=== PATIENT | male | born 1985 | race Caucasian/White ===

== ENCOUNTER 2017-11-06 22:33 | Emergency (ER) | payer SELFPAY ==
[~2017-11-06] VITALS: Ht 195.6 cm; Wt 120.2 kg
[2017-11-06] MEDS ORDERED: ASPIRIN 81 MG CHEW (CHILDREN'S ASA) PO ONE (23:15)
[2017-11-06 23:20] LABS: BASOPHILS % (AUTO) 0 % (0-10); EOSINOPHILS # (AUTO) 0.1 10^3/uL (0.0-0.3); EOSINOPHILS % (AUTO) 1 % (0-10); HEMATOCRIT 48 % (40-54); HEMOGLOBIN 17.3 G/DL (13.3-17.7); LYMPHOCYTES # (AUTO) 2.3 X 10^3 (1.0-4.0); LYMPHOCYTES % (AUTO) 26 % (12-44); MEAN CORPUSCULAR HEMOGLOBIN 32 PG (25-34); MEAN CORPUSCULAR HGB CONC 36 G/DL (32-36); MEAN CORPUSCULAR VOLUME 89 FL (80-99); MEAN PLATELET VOLUME 10.1 FL (7.4-10.4); MONOCYTES # (AUTO) 0.9 X 10^3 (0.0-1.0); MONOCYTES % (AUTO) 10 % (0-12); NEUTROPHILS # (AUTO) 5.6 X 10^3 (1.8-7.8); NEUTROPHILS % (AUTO) 63 % (42-75); PLATELET COUNT 263 10^3/uL (130-400); RED BLOOD COUNT 5.43 10^6/uL (4.35-5.85); RED CELL DISTRIBUTION WIDTH 12.1 % (10.0-14.5); WHITE BLOOD COUNT 8.9 10^3/uL (4.3-11.0)
[2017-11-06] MEDS: NITROGLYCERIN 0.4 MG SL TABS BTL 25'S SL PRN ×2 (23:26→23:27)
[2017-11-06 23:30] LABS: INR 1.1 (0.8-1.4); PROTHROMBIN TIME PATIENT 13.9 SEC (12.2-14.7)
[2017-11-06 23:34] LABS: ALANINE AMINOTRANSFERASE 20 U/L (0-55); ALBUMIN 4.6 GM/DL (3.2-4.5); ALKALINE PHOSPHATASE 70 U/L (40-136); BILIRUBIN,TOTAL 1.3 MG/DL (0.1-1.0); BUN/CREATININE RATIO 18; CALCIUM 9.6 MG/DL (8.5-10.1); CARBON DIOXIDE 19 MMOL/L (21-32); CHLORIDE 109 MMOL/L (98-107); CREATININE SERUM 0.94 MG/DL (0.60-1.30); GFR ESTIMATED > 60; GLUCOSE 100 MG/DL (70-105); MAGNESIUM 2.3 MG/DL (1.8-2.4); POTASSIUM 3.7 MMOL/L (3.6-5.0); SODIUM 140 MMOL/L (135-145); TOTAL PROTEIN 7.7 GM/DL (6.4-8.2)
[2017-11-06 23:41] LABS: MYOGLOBIN SERUM 42.4 NG/ML (10.0-92.0)
[2017-11-07] MEDS ORDERED: PROP10TA8 PO (00:29)
[2017-11-07 01:20] LABS: AMPHETAMINE SCREEN, URINE NEGATIVE (NEGATIVE); BARBITURATE SCREEN URINE NEGATIVE (NEGATIVE); BENZODIAZEPINES SCREEN URINE NEGATIVE (NEGATIVE); CANNABINOID SCREEN, URINE POSITIVE (NEGATIVE); COCAINE SCREEN URINE NEGATIVE (NEGATIVE); METHADONE STAT NEGATIVE (NEGATIVE); METHAMPHETAMINE SCREEN URINE S NEGATIVE (NEGATIVE); OPIATE SCREEN URINE NEGATIVE (NEGATIVE); OXYCODONE STAT NEGATIVE (NEGATIVE); PROPOXYPHENE STAT NEGATIVE (NEGATIVE); TRICYCLIC ANTIDEPRESSANTS SCRE NEGATIVE (NEGATIVE)
--- NOTE | 2017-11-07 02:10 | ED Chest Pain ---
General Chief Complaint: Chest Pain Stated Complaint: CP Nursing Triage Note: PT PRESENTS TO ER WITH COMPLAINT OF CHEST PAIN THAT STARTED AN HOUR AGO. STATE HE THINKS IT COULD BE AN ANXIETY ATTACK. WAS SEEN A COUPLE WEEKS AGO WITH PROBABLE ANXIEY ATTACK AND GIVEN PROPRANLOL TO TAKE AT HOME. Nursing Sepsis Screen: No Definite Risk Source: patient Exam Limitations: no limitations History of Present Illness Date Seen by Provider: Nov 06, 2017 Time Seen by Provider: 22:50 Initial Comments This 31-year-old young man presents to the emergency room with chest pain for about one hour. The pain radiates to his left arm which also feels swollen. He describes the pain as a tightening. He took propranolol at the onset of pain which had been prescribed from [place] of state. He lives in [place] where he had a similar episode a few weeks ago. His workup was reportedly unremarkable at that time and he was prescribed propranolol for anxiety. He was advised to return to care if symptoms worsened again. He is traveling through the area on a fishing trip with his significant other. He denies any associated symptoms of shortness of air, nausea, lightheadedness, etc. He does feel agitated and thinks these symptoms may be related to anxiety. Symptoms do not worsen with exertion, deep breathing, or movement. He denies any injury. Allergies and Home Medications Allergies Coded Allergies: No Known Drug Allergies (Unverified , 11/06/17) Home Medications Propranolol HCl 10 Mg Tablet, Unknown Dose PO BID, (Reported) Patient Home Medication List Home Medication List Reviewed: Yes Review of Systems Constitutional: no symptoms reported EENTM: No Symptoms Reported Respiratory: No Symptoms Reported Cardiovascular: See HPI Gastrointestinal: No Symptoms Reported Genitourinary: No Symptoms Reported Musculoskeletal: no symptoms reported Skin: no symptoms reported Psychiatric/Neurological: See HPI Endocrine: No Symptoms Reported Hematologic/Lymphatic: No Symptoms Reported Past [id number] Hx Past Med/Social Hx: Reviewed and Corrections made Patient Social History Alcohol Use: Past History Smoking Status: Current Everyday Smoker Type Used: Cigarettes Recent Foreign Travel: No Contact w/Someone Who Travel: No Recent Infectious Disease Expo: No Recent Hopitalizations: No Immunizations Up To Date Tetanus Booster (TDap): Unknown PED Vaccines UTD: Yes Seasonal Allergies Seasonal Allergies: No Past Medical History Surgeries: No Respiratory: No Cardiac: No Neurological: No Genitourinary: No Gastrointestinal: No Musculoskeletal: No Endocrine: No HEENT: No Cancer: No Psychosocial: Yes Anxiety Integumentary: No Blood Disorders: No Family Medical History Reviewed and Corrections made No Pertinent Family Hx (No history of cardiac disease or sudden cardiac ) Physical Exam Vital Signs Vital Signs - First Documented 11/06/17 22:51 Pulse 79 Resp 20 B/P (MAP) 160/106 (124) Pulse Ox 98 O2 Delivery Room Air Capillary Refill : Less Than 3 Seconds General Appearance: WD/WN, Anxious HEENT: PERRL/EOMI, Normal ENT Inspection, Pharynx Normal Neck: Normal Inspection Respiratory: Chest Non Tender, Lungs Clear, Normal Breath Sounds, No Accessory Muscle Use, No Respiratory Distress Cardiovascular: Regular Rate, Rhythm, No Edema, No Murmur, Normal Peripheral Pulses Gastrointestinal: Normal Bowel Sounds, Non Tender, Soft Extremity: Normal Capillary Refill, Normal Inspection, No Pedal Edema Neurologic/Psychiatric: Alert, Oriented x3, No Motor/Sensory Deficits, Normal Mood/Affect, cashier gambling II-XII Norm as Tested Skin: Normal Color, Warm/Dry Progress/Results/Core Measures Results/Orders Lab Results Laboratory Tests Test 11/06/17 00:00 11/06/17 01:02 11/06/17 23:00 11/07/17 01:30 Range/Units C-Reactive Protein High Sensitivity 0.09 0.00-0.50 MG/DL Serum Alcohol < 10 <10 MG/DL Urine Opiates Screen NEGATIVE NEGATIVE Urine Oxycodone Screen NEGATIVE NEGATIVE Urine Methadone Screen NEGATIVE NEGATIVE Urine Propoxyphene Screen NEGATIVE NEGATIVE Urine Barbiturates Screen NEGATIVE NEGATIVE Ur Tricyclic Antidepressants Screen NEGATIVE NEGATIVE Urine Phencyclidine Screen NEGATIVE NEGATIVE Urine Amphetamines Screen NEGATIVE NEGATIVE Urine Methamphetamines Screen NEGATIVE NEGATIVE Urine Benzodiazepines Screen NEGATIVE NEGATIVE Urine Cocaine Screen NEGATIVE NEGATIVE Urine Cannabinoids Screen POSITIVE H NEGATIVE White Blood Count 8.9 4.3-11.0 10^3/uL Red Blood Count 5.43 4.35-5.85 10^6/uL Hemoglobin 17.3 13.3-17.7 G/DL Hematocrit 48 40-54 % Mean Corpuscular Volume 89 80-99 FL Mean Corpuscular Hemoglobin 32 25-34 PG Mean Corpuscular Hemoglobin Concent 36 32-36 G/DL Red Cell Distribution Width 12.1 10.0-14.5 % Platelet Count 263 130-400 10^3/uL Mean Platelet Volume 10.1 7.4-10.4 FL Neutrophils (%) (Auto) 63 42-75 % Lymphocytes (%) (Auto) 26 12-44 % Monocytes (%) (Auto) 10 0-12 % Eosinophils (%) (Auto) 1 0-10 % Basophils (%) (Auto) 0 0-10 % Neutrophils # (Auto) 5.6 1.8-7.8 X 10^3 Lymphocytes # (Auto) 2.3 1.0-4.0 X 10^3 Monocytes # (Auto) 0.9 0.0-1.0 X 10^3 Eosinophils # (Auto) 0.1 0.0-0.3 10^3/uL Basophils # (Auto) 0.0 0.0-0.1 10^3/uL Prothrombin Time 13.9 12.2-14.7 SEC INR Comment 1.1 0.8-1.4 Activated Partial Thromboplast Time 28 24-35 SEC D-Dimer < 0.27 0.00-0.49 UG/ML Sodium Level 140 135-145 MMOL/L Potassium Level 3.7 3.6-5.0 MMOL/L Chloride Level 109 H 98-107 MMOL/L Carbon Dioxide Level 19 L 21-32 MMOL/L Anion Gap 12 5-14 MMOL/L Blood Urea Nitrogen 17 7-18 MG/DL Creatinine 0.94 0.60-1.30 MG/DL Estimat Glomerular Filtration Rate > 60 BUN/Creatinine Ratio 18 Glucose Level 100 70-105 MG/DL Calcium Level 9.6 8.5-10.1 MG/DL Magnesium Level 2.3 1.8-2.4 MG/DL Total Bilirubin 1.3 H 0.1-1.0 MG/DL Aspartate Amino Transf (AST/SGOT) 20 5-34 U/L Alanine Aminotransferase (ALT/SGPT) 20 0-55 U/L Alkaline Phosphatase 70 40-136 U/L Myoglobin 42.4 10.0-92.0 NG/ML Troponin I < 0.30 < 0.30 <0.30 NG/ML Total Protein 7.7 6.4-8.2 GM/DL Albumin 4.6 H 3.2-4.5 GM/DL My Orders Orders - PRISCILA OLIVARES MD Cbc With Automated Diff (11/06/17 23:08) Magnesium (11/06/17 23:08) Ekg Tracing (11/06/17 23:08) Cardiac Profile 1 (11/06/17 23:08) Comprehensive Metabolic Panel (11/06/17 23:08) Myoglobin Serum (11/06/17 23:08) Protime With Inr (11/06/17 23:08) Partial Thromboplastin Time (11/06/17 23:08) O2 (11/06/17 23:08) Monitor-Rhythm Ecg Trace Only (11/06/17 23:08) Saline Lock/Iv-Start (11/06/17 23:08) Fibrin Degradation Products (11/06/17 23:08) Aspirin Chewable Tablet (Baby Aspirin Ch (11/06/17 23:15) Nitroglycerin 0.4 Mg Btl 25's (Nitrostat (11/06/17 23:15) Chest Pa/Lat (2 View) (11/06/17 23:28) Alcohol (11/06/17 23:40) Drug Screen Stat (Urine) (11/06/17 23:40) Hs C Reactive Protein (11/07/17 00:06) Troponin I (11/07/17 01:21) Ekg Tracing (11/07/17 01:21) Medications Given in ED Vital Signs/I&O 11/06/17 11/07/17 22:51 02:17 Pulse 79 92 Resp 20 20 B/P (MAP) 160/106 (124) 145/80 Pulse Ox 98 100 O2 Delivery Room Air Room Air Blood Pressure Mean: 124 Progress Progress Note : Progress Note Cardiac workup was pursued which was unremarkable. There were no ischemic changes noted on EKG. Chest x-ray showed no acute abnormalities. Patient received aspirin but declined nitroglycerin. Pain resolved spontaneously and did not return. Patient was offered a four-hour cardiac rule out which he appreciated. A repeat troponin and EKG were performed about 4 hours from onset of pain. There were no significant changes. Patient was dismissed home and advised to follow-up with a primary care provider soon as possible. EKG #1: EKG Time: 22:54 Rate: 80 Rhythm: Normal Sinus Comment Normal sinus rhythm with no ST elevation or depression. Incomplete right bundle branch block. No axis deviation. EKG #2: EKG Time: 01:23 Rate: 63 Rhythm: Normal Sinus Comment Sinus rhythm with no ST elevation or depression. Incomplete right bundle branch block. No axis deviation. Diagnostic Imaging Diagonstic Imaging: Xray Plain Films/CT/US/NM/MRI: chest Comments Chest x-ray viewed by me. Report not yet available. No acute abnormalities appreciated. Departure Impression Primary Impression: Atypical chest pain Additional Impression: Anxiety Disposition: HOME, SELF-CARE Condition: Improved Departure-Patient Inst. Decision time for Depature: 02:09 Referrals: NO,LOCAL PHYSICIAN (PCP/Family) Primary Care Physician Patient Instructions: Chest Pain (DC) Add. Discharge Instructions: Based on your evaluation in the ER, your chest pain is likely not related to heart disease or blood clot in the lung. Anxiety may be a contributing factor. Please follow-up with your primary care provider as soon as possible. Return to care promptly if you are having worsening symptoms. Avoid use of any inhaled irritants such as tobacco smoke or marijuana. Work toward quitting smoking as soon as possible and seek help from your doctor if necessary. All discharge instructions reviewed with patient and/or family. Voiced understanding. PRISCILA OLIVARES MD Nov 07, 2017 02:10
[2017-11-07 02:17] VITALS: BP 145/80
--- NOTE | 2017-11-07 06:50 | Diagnostic Imaging Report ---
Patient History: Chest pain Technique: Two views of the chest Comparison: None FINDINGS: The lung volumes are normal. No focal consolidation is seen. No large pleural effusion or pneumothorax is seen. The posterior costophrenic angles are incompletely included on the lateral view. The cardiomediastinal silhouette is normal in size and contour. No acute osseous abnormality is seen. IMPRESSION: No acute pulmonary abnormality seen. Dictated by: Dictated on workstation # [id number]
== END 2017-11-07 02:17 | disposition home or self-care (01) ==
LOC: ER 22:35
DX: R07.89 Other chest pain (principal); F41.9 Anxiety disorder, unspecified; F17.210 Nicotine dependence, cigarettes, uncomplicated
CPT/HCPCS: 36415; 71046; 80053; 80306; 80320; 83735; 83874; 84484; 85025; 85379; 85610; 85730; 86141; 93005; 93041